=== PATIENT | female | born 1970 | race Caucasian/White ===

== ENCOUNTER 2017-05-14 09:31 | Emergency (ER) | payer OTHER ==
[~2017-05-14] VITALS: Ht 157.5 cm; Wt 110.0 kg
[2017-05-14 09:32] VITALS: Ht 157.5 cm; Wt 110.0 kg
--- NOTE | 2017-05-14 10:10 | RADRPT ---
PROCEDURE: Left hand series CLINICAL INDICATION: Left hand pain after recent fall TECHNIQUE: Three views of the left hand were obtained. COMPARISON: No prior studies are available for comparison. FINDINGS: There is mild subluxation of the first metacarpal phalangeal joint. There is otherwise normal underground miner alization and alignment of the bones of the left hand. There is no evidence of acute fracture. The re are moderate degenerative changes of the first carpal metacarpal joint the remainder of joint spa mckayla are grossly well maintained. The soft tissues are within normal limits. IMPRESSION: 1. Mild subluxation of the first metacarpal phalangeal joint without evidence of fracture or jayden d islocation. 2. Degenerative changes of the first carpal metacarpal joint. RPTAT: KK .Zay Osorio MD, MD Date Time Electronically viewed and signed by .Zay Osorio MD, MD on 05/14/2017 10:10 .B/
--- NOTE | 2017-05-14 10:56 | ERD ---
ER Documentation Chief Complaint Date/Time DATE: 05/14/17 TIME: 10:54 Chief Complaint LT HAND PAIN S/P FALL X 2 WEEKS AGO HPI This a 46-year-old female who presents to the emergency department today complaining of some left thumb pain after a fall that she sustained 2 weeks ago will trying to go up a curb. Patient states that she thought that her hand was fine but she continued to have pain in that is why she came to the emergency room. States she is taking ibuprofen for the pain. Denies any previous trauma , fevers or chills. ROS All systems reviewed and are negative except as per history of present illness. Medications Home Meds Active Scripts Naproxen* (Naprosyn*) 500 Mg Tablet, 500 MG PO BID Y for PAIN AND/OR INFLAMMATION, #30 TAB Prov:YAYA MARTINEZ PA-C 05/14/17 Tramadol HCl (Tramadol HCl) 50 Mg Tablet, 50 MG PO Q4 Y for PAIN, #20 TAB Prov:YAYA MARTINEZ PA-C 05/14/17 Allergies Allergies: Coded Allergies: aspirin (Verified Allergy, Unknown, RASH, 02/16/14) PMhx/Soc Anesthesia Reaction: No Hx Neurological Disorder: No Hx Respiratory Disorders: No Hx Cardiac Disorders: No Hx Psychiatric Problems: No Hx Miscellaneous Medical Probl: No Hx Alcohol Use: No Hx Substance Use: No Hx Tobacco Use: No Smoking Status: Never smoker Physical Exam Vitals Vital Signs Date Time Temp Pulse Resp B/P Pulse Ox O2 Delivery O2 Flow Rate FiO2 05/14/17 09:32 97.6 83 16 121/66 97 Physical Exam Const: No acute distress Head: Atraumatic Eyes: Normal Conjunctiva ENT: Normal External Ears, Nose and Mouth. Neck: Full range of motion..~ No meningismus. Resp: Clear to auscultation bilaterally Cardio: Regular rate and rhythm, no murmurs Skin: No petechiae or rashes Back: No midline or flank tenderness Ext: Left hand with no obvious deformity. No effusion. No ecchymosis. Tenderness to palpation and TP joint. Mild tenderness palpation scaphoid. Full active range of motion of wrist. Pulses 2+. Distal neurovascularly intact Neur: Awake and alert Psych: Normal Mood and Affect Procedures/MDM This 46-year-old female who presents the emergency department today complaining of left thumb pain after sustaining a fall 2 weeks ago. Given patient's trauma and persistent pain I did obtain images. Per the radiology report images of the left hand show mild subluxation of the first metacarpal phalangeal joint without evidence of fracture or jayden dislocation. There are degenerative changes of the first carpometacarpal joint. Soft tissues are within normal limits. This is likely the source of the patient's pain. I did discuss the patient imaging with Dr. Magallon I did apply some light traction to the patient's first MTP joint however patient reported that her symptoms felt the same. Patient does not have an acute dislocation and there is no further concern for that. She is afebrile and otherwise well-appearing have low suspicion for septic joint or gout Patient was placed in a thumb spica splint as I did have some concern for scaphoid tenderness. I have explained this to the patient. She was distal neurovascular intact pre-and post splint application. Patient was given a sling as well for comfort. Patient declined any pain medication here in the emergency department. I did give her a short course of tramadol should she need it otherwise she may continue taking her Naprosyn that she takes at home for her other arthritis pain. Patient understood. Patient was instructed to follow-up with her primary care physician for referral to explosive ordnance specialist. I did also give her referral information for [facility] hand clinic At this time the patient is stable for discharge and outpatient management. Patient should follow up with their PCP in the next 1-2 days. They may return to the emergency department sooner for any persistent or worsening of symptoms. Patient understood and agreed with the plan. Departure Diagnosis: Primary Impression: Thumb injury Encounter type: initial encounter Laterality: left Qualified Code: S69.92XA - Thumb injury, left, initial encounter Condition: Fair YAYA MARTINEZ PA-C May 14, 2017 10:56
[2017-05-14] MEDS ORDERED: TRAM50TA2 PO (11:28)
[2017-05-14] MEDS ORDERED: NAPR-260 PO (11:29)
== END 2017-05-14 12:00 | disposition home or self-care (01) ==
LOC: FTE 09:31
DX: S69.92XA Unspecified injury of left wrist, hand and finger(s), initial encounter (principal); W18.39XA Other fall on same level, initial encounter; Y92.9 Unspecified place or not applicable
CPT/HCPCS: 29125; 73130; Z7502

== ENCOUNTER 2019-04-23 13:25 | Emergency (ER) | payer OTHER ==
[~2019-04-23] VITALS: Ht 154.9 cm; Wt 110.0 kg
[~2019-04-23 13:25] MED LIST: NAPR-985 PO; TRAM50TA2 PO
[2019-04-23 13:31] VITALS: Ht 154.9 cm; Wt 110.0 kg
--- NOTE | 2019-04-23 14:05 | ERD ---
ER Documentation Chief Complaint Chief Complaint bilat knee, back pain p mech fall x1d. no relief w aleve, tylenol. hx arthr HPI 48-year-old female, previously healthy, presents to the emergency department, complaining of bilateral knee pain and back pain after a mechanical ground-level fall that occurred yesterday. The patient has been taking naproxen with mild improvement of the symptoms. No head trauma. The patient reports lower back p ain for 2 weeks, associated with paresthesias of the lower extremities but no incontinence or weakness. The patient denies fever, chills or rashes. ROS All systems reviewed and are negative except as per history of present illness. Medications Home Meds Active Scripts Hydrocodone/Acetaminophen (Ellsworth 5-325 Tablet) 1 Each Tablet, 1 TAB PO BID PRN for PAIN, #20 TAB Prov:COLT ALCAZAR MD 04/23/19 Prednisone* (Prednisone*) 20 Mg Tab, 60 MG PO DAILY for 5 Days, TAB Prov:COLT ALCAZAR MD 04/23/19 Naproxen* (Naprosyn*) 500 Mg Tablet, 500 MG PO BID PRN for PAIN AND/OR INFLAMMATION, #30 TAB Prov:YAYA MARTINEZ PA-C 05/14/17 Tramadol HCl (Tramadol HCl) 50 Mg Tablet, 50 MG PO Q4 PRN for PAIN, #20 TAB Prov:YAYA MARTINEZ PA-C 05/14/17 Allergies Allergies: Coded Allergies: aspirin (Verified Allergy, Unknown, RASH, 02/16/14) PMhx/Soc Medical and Surgical Hx: pt denies Medical Hx, pt denies Surgical Hx History of Surgery: Yes (BREAST, X3) Anesthesia Reaction: No Hx Neurological Disorder: No Hx Respiratory Disorders: No Hx Cardiac Disorders: No Hx Psychiatric Problems: No Hx Miscellaneous Medical Probl: No Hx Alcohol Use: No Hx Substance Use: No Hx Tobacco Use: No Smoking Status: Never smoker FmHx Family History: diabetes; No coronary disease Physical Exam Vitals Vital Signs Date Temp Pulse Resp B/P (MAP) Pulse Ox O2 O2 Flow FiO2 Time Delivery Rate 04/23/19 97.9 82 18 131/62 97 Room Air 18:29 (85) 04/23/19 97.8 71 20 156/83 99 13:31 (107) Physical Exam Patient is in no acute distress, vital signs stable. Alert and fully oriented. EYES: PERRLA, EOMI, Sclera and conjunctiva appear normal. EARS: Canals clear, tympanic membranes WNL THROAT: Normal oropharynx. NECK: Supple, No lymphadenopathy. Full ROM without pain or tenderness. HEART: RRR, no rubs, murmurs, clicks or gallops. LUNGS: Clear to auscultation. ABDOMEN: Soft, non-tender without masses or hepatosplenomegaly. EXTREMITIES: No edema bilaterally. BACK: Normal inspection, no bruises, no rashes, no deformity, decreased range of motion for lateral rotation and flexion. No vertebral tenderness, bilateral lower muscle spasm. NEURO: Cranial nerves grossly intact, no motor or sensory deficit Results 24 hrs Laboratory Tests Test 04/23/19 14:36 04/23/19 14:38 Bedside Urine pH (LAB) 6.5 Bedside Urine Protein (LAB) 1+ Bedside Urine Glucose (UA) Negative Bedside Urine Ketones (LAB) Negative Bedside Urine Blood 3+ Bedside Urine Nitrite (LAB) Negative Bedside Urine Leukocyte Esterase (L Negative POC Beta HCG, Qualitative NEGATIVE Current Medications Medications Dose Sig/Yasmany Start Time Status Last (Trade) Ordered Route PRN Stop Time Admin Dose Reason Admin 10 mg ONCE ONCE 04/23/19 DC 04/23/19 Dexamethasone IM 14:30 04/23/19 14:26 (Decadron) 14:31 325 mg ONCE ONCE 04/23/19 DC 04/23/19 Acetaminophen PO 16:30 04/23/19 16:25 (Tylenol 16:31 Tab) 1 tab ONCE ONCE 04/23/19 DC 04/23/19 Acetaminophen PO 18:00 04/23/19 17:44 / 18:01 Hydrocodone Bitart (Ellsworth (5/325)) Patient: RAJNI VARGAS : 1970 Age: 48 Sex: F MR #[facility] [id number] [facility] #: [id number] DOS: 04/23/19 1411 Ordering MD: COLT ALCAZAR MD Location: [facility]TE Room/Bed: PROCEDURE: CT lumbar spine without contrast CLINICAL INDICATION: Back pain. TECHNIQUE: A CT scan of the lumbar spine was performed without intravenous contrast. Coronal and sagittal reformatted images were generated. DICOM images are available. CTDIvol: 38.21 mGy. DLP: 1170.72 mGy-cm. One or more of the following dose reduction techniques were used: - Automated exposure control. - Adjustment of the mA and/or kV according to patient size. - Use of iterative reconstruction technique. COMPARISON: None. FINDINGS: The lumbar lordosis is preserved without spondylolisthesis. The vertebral body heights are maintained. Bone mineralization is normal and there is no missy picious osseous lesion. No fracture or subluxation is identified. T12-L1: There is no significant degenerative change. No spinal canal stenosis or neural foraminal narrowing is seen. L1-L2: There is no significant degenerative change. No spinal canal stenosis or neural foraminal narrowing is seen. L2-L3: There is no significant degenerative change. No spinal canal stenosis or neural foraminal narrowing is seen. L3-L4: Minimal disc bulging and mildly prominent dorsal epidural fat contribute to mild spinal canal stenosis (9 mm AP canal diameter). There is no significant neural foraminal narrowing. L4-L5: Posterior disc bulging and ligamentum thickening contribute to mild to moderate spinal canal stenosis (8 mm AP canal diameter). The lateral recesses are narrowed, with possible mass effect on the traversing bilateral L5 nerve roots. There is mild bilateral facet arthrosis and calcification of the right ligamentum flavum. Severe right and mild to moderate left neural foraminal narrowings are noted. L5-S1: Posterior disc bulging causes mild to moderate spinal canal stenosis. There is mild bilateral facet arthrosis with bilateral ligamentum flavum calcifications. Severe bilateral neural foraminal narrowings are noted. The paraspinal soft tissues are unremarkable. There is an intrauterine device in appropriate position within the endometrial canal. IMPRESSION: No lumbar spine fracture or subluxation. Severe neural foraminal narrowings on the right at L4-L5 and bilaterally at L5- S1. Mild spinal canal stenosis at L3-L4. Mild to moderate spinal canal stenosis at L4-L5 and L5-S1. At L4-L5, there is narrowing of the lateral recesses with possible mass effect on the traversing bilateral L5 nerve roots. Procedures/MDM At the time of discharge, patient nontoxic, ambulating with support, vital signs stable, no gross neurologic deficit. differential diagnosis include but not limited to: lumbar sprain/strain, sciatica, herniated disk, UTI less likely pyelo, kidney stone. Neurovascular exam grossly intact. no clinical findings suggestive of acute infectious process, no acute deformity, no edema, no rashes. Physical examination and clinical presentation consistent most likely with degenerative disc disease. During the ED course the patient received treatment with Ellsworth, Tylenol and dexamethasone IM presenting overall improvement of the symptoms. Results and clinical impression discussed with the patient who agrees with management. The patient is stable to be treated outpatient and will be discharged home with recommendations and close monitoring The patient was informed that the evaluation in the emergency department has been done to rule out an acute emergency, therefore, chronic conditions like malignancy or autoimmune diseases have not been evaluated; therefore, the patient was instructed to follow up with the primary care provider in the next 48h. If symptoms persist, worsen or new symptoms develop, then patient should return to the ED immediately. Instructions explained and given to patient with acknowledgment and demonstrated understanding. Disclaimer: Inadvertent spelling and grammatical errors are likely due to EHR/dictation software use and do not reflect on the overall quality of patient care. Also, please note that the electronic time recorded on this note does not necessarily reflect the actual time of the patient encounter. Departure Diagnosis: Primary Impression: Degenerative joint disease of low back Additional Impression: Low back pain with sciatica Condition: Stable Additional Instructions: Thank you very much for allowing us to participate in your care. Your health and safety is our top priority at [facility]. The evaluation in the emergency department has been done to rule out an acute e mergency. Chronic, [id number] conditions may have not been evaluated; therefore, you need to follow up with a primary care provider in the next 48h. If symptoms persist, worsen or new symptoms develop, then patient should return to the ED immediately. Call your primary care doctor TOMORROW for an appointment during the next 2-4 days and bring all the information provided. Have prescriptions filled and follow precisely the directions on the label. If the symptoms get worse and your provider is unavailable, return to the Emergency Department immediately. COLT ALCAZAR MD Apr 23, 2019 14:05
[2019-04-23] MEDS ORDERED: DEXAMETHASONE 10 MG/ML 1 ML INJ IM ONE (14:30)
[2019-04-23] MEDS ORDERED: ACETAMINOPHEN 325 MG TAB PO ONE (16:30)
[2019-04-23] MEDS ORDERED: HYDROCODONE/APAP (5/325) TAB PO ONE (18:00)
[2019-04-23] MEDS ORDERED: PRED20TA PO (18:12)
[2019-04-23] MEDS ORDERED: HYDR-4011 PO (18:12)
[2019-04-23 18:29] VITALS: BP 131/62; PULSE 82; RESP 18
== END 2019-04-23 18:30 | disposition home or self-care (01) ==
LOC: FTE 13:25
DX: M51.36 Other intervertebral disc degeneration, lumbar region (principal); M54.40 Lumbago with sciatica, unspecified side
CPT/HCPCS: 72131; 81003; 81025; 96372; J1100; Z7502; Z7610